=== PATIENT | female | born 1980 | race Caucasian/White ===

== ENCOUNTER 2016-05-03 14:45 | Emergency (ER) | payer OTHER ==
[2016-05-03 15:34] VITALS: BP 103/64
--- NOTE | 2016-05-03 17:20 | UC ---
Throat Pain/Nasal Miguel HPI - HPI Summary HPI Summary: PT WITH ST X 6 WEEKS MILD TO MODERATE. 1 EPISODE 3-4 WEEKS AGO PT HAD MOUTH SORES AND A YEAST INFECTION(VAG). ALSO HAS SORES AT THE CORNER OF HER MOUTH, DRY MOUTH, CHRONIC PAIN. - History of Current Complaint Chief Complaint: UCGeneralIllness Stated Complaint: ORAL COMPLAINT Hx Obtained From: Patient Hx Last Menstrual Period: 04/06/16 ?: No Onset/Duration: Gradual Onset, Lasting Weeks - 6, Still Present Severity: Moderate Cough: None Associated Signs & Symptoms: Positive: Dysphagia - MILD PAIN, Rash - MOUTH SORES. Negative: Drooling, Wheezing, Hoarseness, Sinus Discomfort, Nasal Discharge, Fever, Vomiting - Allergies/Home Medications Allergies/Adverse Reactions: Allergies Allergy/AdvReac Type Severity Reaction Status Date / Time No Known Allergies Allergy Verified 05/03/16 15:30 Home Medications: Home Medications Escitalopram Oxalate [Lexapro] 20 mg PO DAILY 05/03/16 [History Confirmed ] PMH/Surg Hx/FS Hx/Imm Hx Previously Healthy: Yes Endocrine History Of: Denies: Diabetes Cardiovascular History Of: Denies: Cardiac Disorders GI/ History Of: Denies: Gastrointestinal Bleed Psychological History Of: Reports: Anxiety Cancer History Of: Denies: Lung Cancer Other History Of: Negative For: HIV - Surgical History Surgical History: Yes Surgery Procedure, Year, and Place: 3 , 2006 2007 2011. Tubal Ligation , 2011. cyst removed from stomach - Family History Known Family History: Positive: Unknown - in foster care most of her childhood, unsure of her FHx,"maybe DM" - Social History Lives: With Family Alcohol Use: Rare Substance Use Type: None Smoking Status (MU): Never Smoked Tobacco - Immunization History Most Recent Influenza Vaccination: Not the 2016/2016 Season Review of Systems Constitutional: Negative Skin: Rash Eyes: Negative ENT: Sore Throat Respiratory: Negative Cardiovascular: Negative Gastrointestinal: Negative Genitourinary: Negative Motor: Negative Neurovascular: Negative Musculoskeletal: Negative Neurological: Negative Psychological: Negative All Other Systems Reviewed And Are Negative: Yes Physical Exam Triage Information Reviewed: Yes Appearance: Well-Appearing, No Pain Distress, Well-Nourished Vital Signs: Initial Vital Signs Temp 97.5 F 05/03/16 15:28 Pulse 90 01/02/17 15:28 Resp 16 05/03/16 15:28 BP 103/64 05/03/16 15:28 Pulse Ox 100 05/03/16 15:28 Vital Signs Reviewed: Yes Eyes: Positive: Conjunctiva Clear. Negative: Discharge ENT: Positive: Hearing grossly normal, Pharynx normal, TMs normal, Other: - BL ANGULAR CHEILITIS. Negative: Nasal congestion, Nasal drainage, Tonsillar swelling - ABSENT, Muffled/hoarse voice Dental Exam: Normal Neck: Positive: Supple, Tenderness @ - MILD, Enlarged Nodes @ - TONSILAR Respiratory: Positive: Lungs clear, Normal breath sounds, No respiratory distress, No accessory muscle use Cardiovascular: Positive: RRR, No Murmur Musculoskeletal Exam: Normal Neurological: Positive: Alert, Muscle Tone Normal Psychological: Positive: Normal Response To Family, Age Appropriate Behavior Skin: Positive: rashes - BL ANGULAR CHEILITIS Throat Pain/Nasal Course/Dx - Differential Dx/Diagnosis Differential Diagnosis/HQI/PQRI: Pharyngitis, Sinusitis, Tonsillitis, URI, Other - GERD, ALLERGIES, PHARYNGEAL CANDIDIASIS, AUTO IMMUNE Provider Diagnoses: ANGULAR CHEILITIS, PHARYNGITIS Discharge - Discharge Plan Condition: Stable Disposition: HOME Prescriptions: Mupirocin 2% OINT* [Bactroban 2 % Oint*] 1 applic TOPICAL TID #1 tube Patient Education Materials: Pharyngitis (ED) Referrals: Rosalina Fraire MD [Primary Care Provider] - (FOLLOW UP IN 5-7 DAYS) Additional Instructions: WE ARE SENDING A THROAT CULTURE AND SOME BLOOD FOR LAB WORK. YOU WILL BE CALLED WITH ABNORMAL RESULTS. THE SORES AT THE CORNERS OF YOUR MOUTH ARE CALLED ANGULAR CHEILITIS. Angular cheilitis Author: Dr Lyubov Dupree, [employer] Equipment [employer], [facility], 2010. What is angular cheilitis? Angular cheilitis is a common inflammatory condition affecting the corners of the mouth or oral commissures. Depending on underlying causes, it may last a few days or persist indefinitely. It is also called angular stomatitis and cheilosis. Angular cheilitis What causes angular cheilitis? Angular cheilitis is due to one or more of the following factors: Dribble of saliva causing eczematous cheiltiis, a form of contact irritant dermatitis (perlche) Overhang of upper lip resulting in deep furrows (marionette lines) Dry chapped lips Proliferation of bacteria (impetigo), yeasts (thrush) or virus (cold sores) Who is prone to angular cheilitis? Angular cheilitis is common and affects children and adults, especially when they are in poor health. Predisposing factors include: Oral thrush: infancy, old age, diabetes, systemic corticosteroid or antibiotic use Dentures, especially if they are poor fitting, and there is associated gum recession Poor nutrition: coeliac disease, iron deficiency, riboflavin deficiency Systemic illness, particularly inflammatory bowel disease (ulcerative colitis and Crohn disease) Sensitive skin, especially atopic dermatitis Genetic predisposition, for example in Down syndrome Oral retinoid medication: isotretinoin for acne, acitretin for psoriasis It is made worse by licking the lips. Clinical features Angular cheilitis may result in the following symptoms and signs at the corners of the mouth: Painful cracks / fissures Blisters / erosions / ooze / crusting Redness Bleeding It may progress to more widespread impetigo or candidal skin infection on the adjacent skin and elsewhere. Investigations Culture of swabs taken from the corners of the mouth may reveal: Fabiana albicans Staphylococcus aureus Herpes simplex Skin biopsy is not usually necessary. Treatment In many cases, no treatment is needed and angular cheilitis resolves by itself. Depending on the specific cause, the following treatments may be useful: Lip balm or thick emollient ointment, applied frequently Topical antiseptics Topical or oral antistaphylococcal antibiotic Topical antifungal cream Oral antifungal medication Topical steroid ointment Nutritional supplements Filler injections or implants to build up the oral commissures
[2016-05-05 14:52] LABS: Rheumatoid Factor <15 IU/mL (<15)
== END 2016-05-03 17:20 | disposition home or self-care (01) ==
LOC: UCCORT 14:45
DX: K13.0 Diseases of lips (principal); J02.9 Acute pharyngitis, unspecified
CPT/HCPCS: 86038; 86431; 87070; 87651; 99212; G0463

== ENCOUNTER 2016-06-13 19:03 | Emergency (ER) | payer OTHER ==
[2016-06-13 21:17] VITALS: BP 114/67
--- NOTE | 2016-06-13 21:25 | UC ---
Neck Pain HPI - HPI Summary HPI Summary: neck and upper back pain, acute and chronic. Has known arthritis, was followed by Dr. Wilson for awhile but became frustrated with him and is now trying to get established with [place] [facility]. No trauma. Does do lifting at times. Pain radiates from her neck, down her left side to her left upper back. No chest pain or cough. No focal weakness. 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 - Hx Last Menstrual Period: 2 wks ago Onset/Duration Of Injury/Symptoms: Days Mechanism Of Injury: No Known Trauma Timing: Constant Severity: Severe Pain Intensity: 7 Pain Scale Used: 0-10 Numeric Location: Discrete At: - upper back and neck Character: Dull, Aching, Throbbing Aggravating Factors: Movement Alleviating Factors: Nothing Associated Signs & Symptoms: Positive: Negative Related History: Other - arthritis - Allergies/Home Medications Allergies/Adverse Reactions: Allergies Allergy/AdvReac Type Severity Reaction Status Date / Time No Known Allergies Allergy Verified 06/13/16 21:08 Home Medications: Home Medications Acetaminophen TAB* [Tylenol TAB*] 650 mg PO Q4H PRN 06/13/16 [History Confirmed 06/13/16] PMH/Surg Hx/FS Hx/Imm Hx Previously Healthy: No - arthritis Endocrine History Of: Denies: Diabetes Cardiovascular History Of: Denies: Cardiac Disorders GI/ History Of: Denies: Gastrointestinal Bleed Psychological History Of: Reports: Anxiety Cancer History Of: Denies: Lung Cancer Other History Of: Negative For: HIV - Surgical History Surgical History: Yes Surgery Procedure, Year, and Place: 3 , 2006 2007 2011. Tubal Ligation , 2011. cyst removed from stomach - Family History Known Family History: Positive: Unknown - in foster care most of her childhood, unsure of her FHx,"maybe DM" - Social History Occupation: Unemployed Lives: With Family Alcohol Use: Rare Substance Use Type: None Smoking Status (MU): Never Smoked Tobacco - Immunization History Most Recent Influenza Vaccination: Not the 2016/2016 Season Review Of Systems Constitutional: Positive: Negative Skin: Positive: Negative Eyes: Positive: Negative ENT: Positive: Negative Respiratory: Positive: Negative Cardiovascular: Positive: Negative Gastrointestinal: Positive: Negative Musculoskeletal: Positive: Arthralgia Neurological: Positive: Negative Psychological: Positive: Negative All Other Systems Reviewed And Are Negative: Yes Physical Exam Triage Information Reviewed: Yes Appearance: Well-Appearing, Well-Nourished, Pain Distress Vital Signs: Initial Vital Signs Temp 99.5 F 06/13/16 21:10 Pulse 87 06/13/16 21:10 Resp 16 06/13/16 21:10 BP 114/67 06/13/16 21:10 Pulse Ox 100 06/13/16 21:10 Vital Signs Reviewed: Yes Eyes: Positive: Conjunctiva Clear ENT: Positive: Normal ENT inspection Neck: Positive: Supple, Tenderness @ - left trapezius Respiratory: Positive: Lungs clear, Normal breath sounds, No respiratory distress Cardiovascular: Positive: RRR, No Murmur, Pulses Normal, Brisk Capillary Refill Musculoskeletal: Positive: Strength Intact, ROM Intact, Other: - spinal and paraspinal tenderness, cervical and thoracic Neurological: Positive: Alert, Muscle Tone Normal Psychological Exam: Normal Skin Exam: Normal Neck Pain Course/Dx - Course Course Of Treatment: istop shows 6 hydrocodone on 04/11/16 and 14 on 03/24/16 and 10 on 03/06/16 all from urgent care providers, prior to that from June to January 2016 was getting [address] Wilson - Differential Dx/Diagnosis Differential Dx/HQI/PQRI: Arthritis, Sprain, Strain Provider Diagnoses: cervical strain. thoracic strain Discharge - Discharge Plan Condition: Stable Disposition: HOME Prescriptions: Cyclobenzaprine TAB* [Flexeril TAB*] 10 mg PO TID PRN #30 tab PRN Reason: Pain HYDROcodone/ACETAMIN 5-325 MG* [[place] 5-325 TAB*] 1 tab PO Q6H PRN #12 tab MDD 4 PRN Reason: Pain Methylprednisolone [Medrol Dosepak 4 MG*] 4 mg PO .SEE HANNAH INSTRUCTION #1 hannah Patient Education Materials: Cervical Strain (ED), Thoracic Back Strain (ED), Upper Back Exercises (GEN) Referrals: Rosalina Fraire MD [Primary Care Provider] - Additional Instructions: Dr. Duarte gave a referral for physical therapy. Dr. Duarte advised you to continue with your efforts to get established with the pain clinic in [place].
[2016-06-13] MEDS ORDERED: HYDROcodone/ACETAMIN 5-325 MG* 1 TAB PO ONE (21:50)
[2016-06-13] MEDS ORDERED: Cyclobenzaprine TAB* 10 MG PO ONE (21:51)
== END 2016-06-13 22:07 | disposition home or self-care (01) ==
LOC: UCCORT 19:03
DX: S16.1XXA Strain of muscle, fascia and tendon at neck level, initial encounter (principal); S29.012A Strain of muscle and tendon of back wall of thorax, initial encounter; X58.XXXA Exposure to other specified factors, initial encounter; Y93.9 Activity, unspecified; Y92.9 Unspecified place or not applicable; M47.819 Spondylosis without myelopathy or radiculopathy, site unspecified
CPT/HCPCS: 99213; A9270-GY; G0463

== ENCOUNTER 2016-08-08 10:40 | Emergency (ER) | payer OTHER ==
[2016-08-08 12:06] VITALS: BP 117/61
--- NOTE | 2016-08-08 12:20 | UC ---
Neck Pain HPI - HPI Summary HPI Summary: Pt has arthritis to mid spine, [facility] C/o mid back pain that radiates up neck & to both shoulders L>R. She has been doing more heavy lifting lately taking care of . Had [facility]. Goes to Dr Ngo and had no luck getting in for acute OV and now with spasms and severe pain with movement. No trauma. No falls. Has taken in the past celebrex but it has ran out. [ End ] - History of Current Complaint Chief Complaint: UCBackPain Stated Complaint: NECK/BACK PAIN 3 DAYS Time Seen by Provider: 08/08/16 12:18 Hx Obtained From: Patient Hx Last Menstrual Period: 08/01/16 ?: No Onset/Duration Of Injury/Symptoms: Months Timing: Constant Location: Diffuse Aggravating Factors: Position, Movement Alleviating Factors: OTC Meds Associated Signs & Symptoms: Positive: Negative - Risk Factors Meningitis Risk Factors: Negative - Allergies/Home Medications Allergies/Adverse Reactions: Allergies Allergy/AdvReac Type Severity Reaction Status Date / Time No Known Allergies Allergy Verified 08/08/16 11:57 PMH/Surg Hx/FS Hx/Imm Hx Previously Healthy: Yes Endocrine History Of: Denies: Diabetes Cardiovascular History Of: Denies: Cardiac Disorders Respiratory History Of: Denies: COPD GI/ History Of: Denies: Gastrointestinal Bleed Psychological History Of: Reports: Anxiety Cancer History Of: Denies: Lung Cancer Other History Of: Negative For: HIV - Surgical History Surgical History: Yes Surgery Procedure, Year, and Place: 3 , 2006 2007 2011. Tubal Ligation , 2011. cyst removed from stomach - Family History Known Family History: Positive: Unknown - in foster care most of her childhood, unsure of her FHx,"maybe DM" - Social History Occupation: Employed Full-time Lives: With Family Alcohol Use: Rare Substance Use Type: None Smoking Status (MU): Never Smoked Tobacco - Immunization History Most Recent Influenza Vaccination: Not the 2016/2016 Season Review Of Systems Constitutional: Positive: Negative Skin: Positive: Negative Eyes: Positive: Negative ENT: Positive: Negative Respiratory: Positive: Negative Cardiovascular: Positive: Negative Gastrointestinal: Positive: Negative Genitourinary: Positive: Negative Musculoskeletal: Positive: Arthralgia, Decreased ROM. Negative: Edema Neurological: Positive: Negative Psychological: Positive: Negative All Other Systems Reviewed And Are Negative: Yes Physical Exam Triage Information Reviewed: Yes Appearance: Well-Appearing, Well-Nourished, Pain Distress - moderate Vital Signs: Initial Vital Signs Temp 98.5 F 08/08/16 11:59 Pulse 79 08/08/16 11:59 Resp 16 08/08/16 11:59 BP 117/61 08/08/16 11:59 Pulse Ox 100 08/08/16 11:59 Vital Signs Reviewed: Yes Eye Exam: Normal ENT Exam: Normal Dental Exam: Normal Neck exam: Normal Neck: Positive: 1 Respiratory Exam: Normal Cardiovascular Exam: Normal Musculoskeletal: Positive: Strength Intact, ROM Limited @ - thoracic back pain, Other: - mid thoracic paraspinal T7-T10 tenderness to palpation and hypertonicity . no sp tenderness. no step offs. Neurological Exam: Normal Psychological Exam: Normal Skin Exam: Normal Neck Pain Course/Dx - Course Course Of Treatment: Continue with PT. To f/u with MRI Results from Dr Ngo tomorrow. Celebrex for pain (stop OTC NSAIDs) and tramadol for severe pain She has muscle relaxer at home - Differential Dx/Diagnosis Differential Dx/HQI/PQRI: Arthritis, Sprain, Strain Provider Diagnoses: Thoracic back pain / muscle spasms Discharge - Discharge Plan Condition: Good Disposition: HOME Prescriptions: celeCOXIB CAP* [CeleBREX CAP*] 200 mg PO DAILY #30 cap traMADol TAB* [Ultram*] 50 mg PO Q6HR PRN #10 tab MDD 4 tabs PRN Reason: Pain Patient Education Materials: Back Pain (ED) Referrals: Rosalina Fraire MD [Primary Care Provider] - 3 Days
== END 2016-08-08 13:10 | disposition home or self-care (01) ==
LOC: UCCORT 10:40
DX: M54.6 Pain in thoracic spine (principal); M62.830 Muscle spasm of back; F41.9 Anxiety disorder, unspecified
CPT/HCPCS: 99212; G0463

== ENCOUNTER 2016-12-25 16:59 | Emergency (ER) | payer OTHER ==
[2016-12-25 18:51] VITALS: BP 116/68
--- NOTE | 2016-12-25 19:06 | UC ---
Back Pain HPI - HPI Summary HPI Summary: Aggrevated chronic back falling out of a bounce house. - History of Current Complaint Chief Complaint: UCBackPain Stated Complaint: BACK PAIN (BURNING) Time Seen by Provider: 12/25/16 18:55 Hx Obtained From: Patient Hx Last Menstrual Period: 2 WKS AGO ?: No Onset/Duration: Sudden Onset - falling out of bounce house at son's birthday., Worse Since - onset Timing: Constant Severity Initially: Moderate Severity Currently: Moderate Back Pain: Is Discrete @ - middle thoracic spine, Radiates To - down spine Character: Burning Associated Signs And Symptoms: Positive: Pain with Weight Bearing. Negative: Swelling, Bruising, Weakness, Bladder Incontinence, Bowel Incontinence - Risk Factors TAD Risk Factors: Negative Cauda Equina Risk Factors: Negative - Allergies/Home Medications Allergies/Adverse Reactions: Allergies Allergy/AdvReac Type Severity Reaction Status Date / Time No Known Allergies Allergy Verified 12/25/16 18:51 Home Medications: Home Medications HYDROcodone/ACETAMIN 5-325 MG* [[place] 5-325 TAB*] 1 tab PO Q4H PRN 12/25/16 [ History Confirmed 12/25/16] PMH/Surg Hx/FS Hx/Imm Hx Psychological History: Depression Other History Of: Negative For: HIV - Surgical History Surgical History: Yes Surgery Procedure, Year, and Place: 3 , 2006 2007 2011. Tubal Ligation , 2011. cyst removed from stomach - Family History Known Family History: Positive: Diabetes - Social History Occupation: Unemployed Lives: With Family Alcohol Use: Rare Substance Use Type: None Smoking Status (MU): Never Smoked Tobacco Have You Smoked in the Last Year: No - Immunization History Most Recent Influenza Vaccination: Not the 2015/2016 Season Review of Systems Musculoskeletal: Arthralgia Neurological: Paresthesia - burning pain All Other Systems Reviewed And Are Negative: Yes Physical Exam Triage Information Reviewed: Yes Appearance: Well-Appearing, Well-Nourished, Pain Distress - mild Vital Signs: Initial Vital Signs Temp 97.9 F 12/25/16 18:46 Pulse 100 12/25/16 18:46 Resp 22 12/25/16 18:46 BP 116/68 12/25/16 18:46 Pulse Ox 100 12/25/16 18:46 Vital Signs Reviewed: Yes Neck: Positive: Tenderness @ - spinous process Respiratory Exam: Normal Cardiovascular Exam: Normal Musculoskeletal: Positive: ROM Limited @ - thoracic spine Neurological Exam: Other - DTR 2+ patella and achilles. Neurological: Positive: Other: - increased sensation to pinprick in lower thoracic spine, bilaterally below the T6 level Psychological Exam: Normal Skin Exam: Normal Back Pain Course/Dx - Differential Dx/Diagnosis Differential Diagnosis/HQI/PQRI: Cauda Equina Syndrome, Epidural Abscess, Herniated Disc, Strain Provider Diagnoses: Thoracic radiculitis Discharge - Discharge Plan Condition: Stable Disposition: HOME Prescriptions: Gabapentin CAP(*) [Neurontin 300 CAP(*)] 300 mg PO TID PRN #90 cap PRN Reason: Pain - Back predniSONE TAB* [Deltasone TAB*] 20 mg PO DAILY #18 tab Patient Education Materials: Thoracic Disc Herniation (ED), Prednisone (By mouth), Gabapentin (By mouth) Additional Instructions: GABAPENTIN: Gabapentin is an anti-seizure medication that is more often used for nerve pain. It helps to stabilize the nerve to stop the pain. Its primary side effect is sedation which will improve over time. Most people will start with only one capsule 1 to 2 hours before bed, but if your pain is more severe you may want to start with one capsule twice a day. If the pain is still an issue after another 7 to 10 days the dose may be increased to a maximum of 1 capsule 3 times a day.
[2016-12-25] MEDS ORDERED: Ketorolac INJ* 60 MG/2 ML VIAL IM ONE (19:08)
[2016-12-25] MEDS ORDERED: predniSONE TAB* 20 MG PO ONE (19:08)
== END 2016-12-25 19:35 | disposition home or self-care (01) ==
LOC: UCCORT 16:59
DX: M54.14 Radiculopathy, thoracic region (principal)
CPT/HCPCS: 96372; 99212; G0463; J1885; J7512

== ENCOUNTER 2017-11-23 12:24 | Emergency (ER) | payer OTHER ==
[2017-11-23 13:35] VITALS: BP 111/61
--- NOTE | 2017-11-23 14:08 | UC ---
General HPI - HPI Summary HPI Summary: She is stressed and going through a divorce. She has had a lapse in insurance and has not been on her escitalopram for her anxiety and flexeril for her chornic pain. She has been getting worse pain in the past week or so due to stress. [facility] and was receiving [facility]. She has an appt with pcp Dec 09. She has to fly to [place] to get her children and then fly back and requests something for pain. She denies suicidal thoughts, alcohol, or illicit drugs. - History of Current Complaint Chief Complaint: UCBackPain Stated Complaint: NECK/BACK PAIN Time Seen by Provider: 11/23/17 13:28 Hx Obtained From: Patient Hx Last Menstrual Period: UNKNOWN Onset/Duration: Gradual Onset, Lasting Days Timing: Constant Onset Severity: Moderate Current Severity: Moderate Pain Intensity: 8 Associated Signs & Symptoms: Positive: Back Pain. Negative: Confusion, Cough, Chest Pain, Decreased Oral Intake - Allergy/Home Medications Allergies/Adverse Reactions: Allergies Allergy/AdvReac Type Severity Reaction Status Date / Time No Known Allergies Allergy Verified 12/25/16 18:51 Home Medications: Home Medications Naproxen Sodium [Aleve] 880 mg PO Q4HR 11/23/17 [History Confirmed 11/23/17] PMH/Surg Hx/FS Hx/Imm Hx Previously Healthy: No Psychological History: Anxiety Other History Of: Negative For: HIV - Surgical History Surgical History: Yes Surgery Procedure, Year, and Place: 3 , 2006 2007 2011. Tubal Ligation , 2011. cyst removed from stomach - Family History Known Family History: Positive: Unknown - in foster care most of her childhood, unsure of her FHx,"maybe DM", Diabetes - Social History Alcohol Use: Rare Substance Use Type: None Smoking Status (MU): Never Smoked Tobacco Have You Smoked in the Last Year: No - Immunization History Most Recent Influenza Vaccination: Not the 2016/2016 Season Review of Systems Musculoskeletal: Arthralgia, Myalgia All Other Systems Reviewed And Are Negative: Yes Physical Exam Triage Information Reviewed: Yes Appearance: Well-Appearing, No Pain Distress, Well-Nourished Vital Signs: Initial Vital Signs Temp 98.6 F 11/23/17 13:23 Pulse 113 11/23/17 13:23 Resp 24 11/23/17 13:23 BP 111/61 11/23/17 13:23 Pulse Ox 100 11/23/17 13:23 Vital Signs Reviewed: Yes Eyes: Positive: Conjunctiva Clear ENT: Positive: Normal ENT inspection Neck: Positive: Supple, Nontender, No Lymphadenopathy Respiratory: Negative: Respiratory distress Cardiovascular: Positive: Tachycardia Abdomen Description: Negative: Distended Musculoskeletal Exam: Other - diffuse tenderness of the upper lumbar spine. Neurological: Positive: Alert, Muscle Tone Normal. Negative: Fatigued Psychological: Positive: Other: - appears anxious but logical and pleasant. good eye contact. Skin: Negative: rashes Course/Dx - Differential Dx - Multi-Symptom Provider Diagnoses: chronic back pain. anxiety. refill of meds. acute stress reaction. Discharge - Sign-Out/Discharge Documenting (check all that apply): Patient Departure - Discharge Plan Condition: Good Disposition: HOME Prescriptions: Cyclobenzaprine TAB* [Flexeril 10 MG TAB*] 5 mg PO BEDTIME #14 tab Escitalopram Oxalate [Lexapro 20 mg] 40 mg PO DAILY #28 tab HYDROcodone/ACETAMIN 5-325 MG* [[place] 5-325 TAB*] 1 tab PO Q8H PRN #4 tab MDD 2 PRN Reason: Pain Patient Education Materials: Chronic Pain (ED), Anxiety (ED) Referrals: No Primary Care Phys,NOPCP [Primary Care Provider] - Additional Instructions: Keep your appointment with your PCP as already planned in 2 weeks. - Billing Disposition and Condition Condition: GOOD Disposition: Home
== END 2017-11-23 14:06 | disposition home or self-care (01) ==
LOC: UCCORT 12:24
DX: G89.29 Other chronic pain (principal); M54.9 Dorsalgia, unspecified; F43.0 Acute stress reaction; F41.9 Anxiety disorder, unspecified; Z76.0 Encounter for issue of repeat prescription
CPT/HCPCS: 99212; G0463

== ENCOUNTER 2018-09-04 09:16 | Emergency (ER) | payer OTHER ==
[2018-09-04 10:18] VITALS: BP 117/69
--- NOTE | 2018-09-04 10:39 | ED ---
Lower Extremity - HPI Summary HPI Summary: 38 yr old female with the complaint of right knee pain. Onset of pain 5 hours after falling on both knee yesterday when at work. She states she landed on both knees yesterday. FIve hours later after sitting she got up and then her right knee felt like it locked and she developed some pain. She denies swelling or bruising. Pain is moderate. - History of Current Complaint Chief Complaint: UCLowerExtremity Stated Complaint: WC-RT KNEE INJURY Time Seen by Provider: 09/04/18 10:30 Hx Last Menstrual Period: 08/09/18 Pain Intensity: 6 - Allergies/Home Medications Allergies/Adverse Reactions: Allergies Allergy/AdvReac Type Severity Reaction Status Date / Time No Known Allergies Allergy Verified 09/04/18 10:14 PMH/Surg Hx/FS Hx/Imm Hx Endocrine/Hematology History: Denies: Hx Diabetes Respiratory History: Denies: Hx Chronic Obstructive Pulmonary Disease (COPD), Hx Lung Cancer GI History: Denies: Hx Gastrointestinal Bleed Psychiatric History: Reports: Hx Anxiety - Surgical History Surgery Procedure, Year, and Place: 3 , 2006 2007 2011. Tubal Ligation , 2011. cyst removed from stomach Infectious Disease History: No Infectious Disease History: Denies: Traveled Outside the [place] in Last 30 Days - Family History Known Family History: Positive: Unknown - in foster care most of her childhood, unsure of her FHx,"maybe DM", Diabetes - Social History Occupation: Employed Full-time Alcohol Use: Rare Substance Use Type: Reports: None Smoking Status (MU): Never Smoked Tobacco Have You Smoked in the Last Year: No Review of Systems Constitutional: Negative Positive: Other - knee pain All Other Systems Reviewed And Are Negative: Yes Physical Exam Triage Information Reviewed: Yes Vital Signs On Initial Exam: Initial Vitals Temp Pulse Resp BP Pulse Ox 98 F 75 16 117/69 100 09/04/18 10:15 09/04/18 10:15 09/04/18 10:15 09/04/18 10:15 09/04/18 10:15 Vital Signs Reviewed: Yes Appearance: Positive: Well-Appearing Skin: Positive: Warm, Skin Color Reflects Adequate Perfusion Head/Face: Positive: Normal Head/Face Inspection Eyes: Positive: EOMI ENT: Positive: Pharynx normal Neck: Positive: Nontender Respiratory/Lung Sounds: Positive: Clear to Auscultation Cardiovascular: Positive: Pulses are Symmetrical in both Upper and Lower Extremities Abdomen Description: Negative: Distended Musculoskeletal: Positive: Other - right knee with tenderness over patella. No tenderness over patellar tendon. She has full strength on extension at knee. Mild popliteal tenderness right. No swelling right calf, no swelling right knee. Neurological: Positive: Sensory/Motor Intact, Alert, Oriented to Person Place, Time, CN Intact II-III Diagnostics - Vital Signs Vital Signs Temp Pulse Resp BP Pulse Ox 09/04/18 10:15 98 F 75 16 117/69 100 - Laboratory Lab Statement: Any lab studies that have been ordered have been reviewed, and results considered in the medical decision making process. - Radiology right knee Radiology Interpretation Completed By: Radiologist - nad Lower Extremity Course/Dx - Course Course Of Treatment: 38 yr old with right knee contusion. DC home, crutches. FU with Ortho referral. - Diagnoses Provider Diagnoses: Contusion of knee, right Discharge - Sign-Out/Discharge Documenting (check all that apply): Patient Departure All imaging exams completed and their final reports reviewed: Yes - Discharge Plan Condition: Good Disposition: HOME Prescriptions: Ibuprofen TAB* [Motrin TAB* 600 MG] 600 mg PO Q8H PRN #20 tab PRN Reason: Pain Patient Education Materials: Knee Pain (ED), Contusion in Adults (ED) Referrals: FLORIN Briones [Primary Care Provider] - Nciko Baptiste MD [Medical Doctor] - 2 Days - Billing Disposition and Condition Condition: GOOD Disposition: Home
== END 2018-09-04 11:50 | disposition home or self-care (01) ==
LOC: UCCORT 09:16
DX: S80.01XA Contusion of right knee, initial encounter (principal); W18.30XA Fall on same level, unspecified, initial encounter; F41.9 Anxiety disorder, unspecified
CPT/HCPCS: 99212; G0463

== ENCOUNTER 2019-06-27 15:48 | Emergency (ER) | payer OTHER ==
[2019-06-27 17:35] VITALS: BP 105/63
--- NOTE | 2019-06-27 17:59 | UC ---
Throat Pain/Nasal Miguel HPI - HPI Summary HPI Summary: 39 y/o female presents to the urgent care c/o nasal congestion, fatigue, chills , a lot of clear nasal discharge, LACEY, sore throat and mild cough for the past 3 days. Pt has been taking Nyquill, Sudafed and using chloraseptic. Pain w/ swallowing is 4/10. Pt has decrease appetite, but has been drinking fluids. Pt denies dizziness, neck pain, rash, SOB, wheezing, chest pain, abdominal pain, N/ V/d. Pt denies travel outside the country. - History of Current Complaint Chief Complaint: UCGeneralIllness Stated Complaint: THROAT COMPLAINT Time Seen by Provider: 06/27/19 17:54 Hx Obtained From: Patient Hx Last Menstrual Period: 06/23/19 has had tubal Onset/Duration: Gradual Onset, Lasting Days - 2 days, Still Present, Worse Since - last night Severity: Moderate Pain Intensity: 4 - sore throat Pain Scale Used: 0-10 Numeric Cough: Nonproductive Associated Signs & Symptoms: Positive: Nasal Discharge - clear, Fever - subjective low grade fever. Negative: Dysphagia, Wheezing, Hoarseness, Sinus Discomfort, Vomiting, Rash - Epiglottits Risk Factors Epiglottis Risk Factors: Negative - Allergies/Home Medications Allergies/Adverse Reactions: Allergies Allergy/AdvReac Type Severity Reaction Status Date / Time No Known Allergies Allergy Verified 06/27/19 17:35 Home Medications: Home Medications Oseltamivir CAP* [Tamiflu CAP*] 75 mg PO BID #10 cap 06/27/19 [Rx] PMH/Surg Hx/FS Hx/Imm Hx Previously Healthy: Yes - Pt denies PMHX Other History Of: Negative For: HIV - Surgical History Surgical History: Yes Surgery Procedure, Year, and Place: 3 , 2006 2007 2011. Tubal Ligation , 2011. cyst removed from stomach - Family History Known Family History: Positive: Unknown - in foster care most of her childhood, unsure of her FHx,"maybe DM", Diabetes - Social History Occupation: Employed Full-time Lives: With Family Alcohol Use: Occasionally Substance Use Type: None Smoking Status (MU): Never Smoked Tobacco Have You Smoked in the Last Year: No - Immunization History Most Recent Influenza Vaccination: Not the 2016/2016 Season Review of Systems All Other Systems Reviewed And Are Negative: Yes Constitutional: Positive: Fever - subjective fever, Chills, Fatigue, Other - body aches Skin: Positive: Negative Eyes: Positive: Negative ENT: Positive: Sore Throat, Nasal Discharge - clear, Sinus Congestion, Sinus Pain/Tenderness Respiratory: Positive: Cough - dry Cardiovascular: Positive: Negative Gastrointestinal: Positive: Negative Genitourinary: Positive: Negative Motor: Positive: Negative Neurovascular: Positive: Negative Musculoskeletal: Positive: Myalgia Neurological/Mental Status: Positive: Headache Psychological: Positive: Negative Is Patient Immunocompromised?: No Physical Exam - Summary Physical Exam Summary: VITAL SIGNS: Reviewed. GENERAL: Patient is a well developed and nourished female who is sitting comfortably in the examining table. Patient is not in any acute respiratory distress. HEAD AND FACE: No signs of trauma. No ecchymosis, hematomas or skull depressions. No sinus tenderness. EYES: PERRLA, EOMI x 2, No injected conjunctiva, no nystagmus. No photophobia. EARS: Hearing grossly intact. Ear canals and tympanic membranes are within normal limits. MOUTH: Positive pharynx with mild erythema, no exudates, No B/L tonsillar enlargement , no exudate. Uvula in midline. edematous nasal mucosa w/ clear nasal discharge, clear PND NECK: Supple, trachea is midline, Positive anterior cervical lymphadenopathy, no JVD, no carotid bruit, no c-spine tenderness, neck with full ROM. No meningeal signs, no Kernig's or brudzinskis signs. CHEST: Symmetric, no tenderness at palpation LUNGS: Clear to auscultation bilaterally. No wheezing or crackles. CVS: Regular rate and rhythm, S1 and S2 present, no murmurs or gallops appreciated. ABDOMEN: Soft, non-tender. No signs of distention. No rebound no guarding, and no masses palpated. Bowel sounds are normal. EXTREMITIES: FROM in all major joints, no edema, no cyanosis or clubbing. NEURO: Alert and oriented x 3. No acute neurological deficits. Pt follows commands. SKIN: Dry and warm Triage Information Reviewed: Yes Vital Signs: Initial Vital Signs Temp 97.7 F 06/27/19 17:31 Pulse 116 06/27/19 17:31 Resp 16 06/27/19 17:31 BP 105/63 06/27/19 17:31 Pulse Ox 100 06/27/19 17:31 Throat Pain/Nasal Course/Dx - Course Course Of Treatment: 39 y/o female presents to the urgent care c/o nasal congestion, fatigue, chills , a lot of clear nasal discharge, LACEY, sore throat and mild cough for the past 3 days. Pt has been taking Nyquill, Sudafed and using chloraseptic. Pain w/ swallowing is 4/10. Pt has decrease appetite, but has been drinking fluids. Pt denies dizziness, neck pain, rash, SOB, wheezing, chest pain, abdominal pain, N/ V/d. Pt denies travel outside the country. Hx obtained. Pt with URI on examination. Rapid strep ordered, result: negative.Influenza A&B ordered: result: Influenza B positive.Pt Rx Tamiflu and ibuprofen PO to alleviate symptoms. Advised on hand washing and wearing a mask to avoid spreading. Pt advised to rest, increase fluid intake, eat well and avoid strenuous exercise. .If symptoms do not improve or worsen advised to return to the urgent care or f/u with her PCP for further evaluation and treatment. Pt understood and agreed - Differential Dx/Diagnosis Differential Diagnosis/HQI/PQRI: Influenza, Laryngitis, Mononucleosis, Otitis Media, Pharyngitis, Sinusitis, Tonsillitis, URI Provider Diagnosis: Influenza B Discharge ED - Sign-Out/Discharge Documenting (check all that apply): Patient Departure - D/C home All imaging exams completed and their final reports reviewed: No Studies - Discharge Plan Condition: Stable Disposition: HOME Prescriptions: Oseltamivir CAP* [Tamiflu CAP*] 75 mg PO BID #10 cap Patient Education Materials: Influenza (ED) Forms: *Work Release Referrals: Ervin Myaa PA [Primary Care Provider] - 3 Days Additional Instructions: 1- Please take the full course of the antiviral to avoid resistance. Encourage hand washing and wear a mask to avoid spreading. 2-Please continue taking Ibuprofen PO q6-8hrs prn as instructed after meals to alleviate fever, and sore throat. Increase fluid intake, eat well, rest and avoid strenuous exercise 3-If symptoms do not improve or worsen please return to the urgent care or f/u with your PCP in 2 days for further evaluation and treatment. - Billing Disposition and Condition Condition: STABLE Disposition: Home
[2019-06-27 18:15] LABS: Influenza B Molecular POSITIVE (Negative)
== END 2019-06-27 18:57 | disposition home or self-care (01) ==
LOC: UCCORT 15:48
DX: J10.1 Influenza due to other identified influenza virus with other respiratory manifestations (principal)
CPT/HCPCS: 87651; 99212; G0463